=== PATIENT | female | born 1970 | race Caucasian/White ===

== ENCOUNTER 2017-12-02 21:43 | Emergency (ER) | payer MEDICAID, OTHER ==
[2017-12-02] MEDS: morphine 4 MG/ML VIAL IV (22:45)
[2017-12-02] MEDS: ONDANSETRON 4 MG INJ IV (22:45)
[2017-12-02] MEDS: SOD CHLORIDE 0.9% 1,000 ML IV (22:47)
[2017-12-02 22:57] LABS: ADD MAN DIFF? NO
[2017-12-02 22:59] LABS: WHITE BLOOD COUNT 8.5 10^3/ul (4.8-10.8)
[2017-12-02 22:59] LABS: BASOPHIL # 0.1 10^3/ul (0.0-0.1); BASOPHILS % 0.7 % (0.0-2.0); EOSINOPHILS # 0.2 10^3/ul (0.0-0.5); EOSINOPHILS % 2.8 % (0.0-7.0); HEMATOCRIT 40.2 % (37.0-47.0); HEMOGLOBIN 13.4 g/dl (12.0-16.0); LYMPHOCYTES # 3.6 10^3/ul (0.8-2.9); LYMPHOCYTES % 41.6 % (15.0-51.0); MEAN CORPUSCULAR HGB CONC 33.3 g/dl (32.0-37.0); MEAN PLATELET VOLUME 9.5 fl (7.4-10.4); MONOCYTE # 0.5 10^3/ul (0.3-0.9); MONOCYTES % 6.1 % (0.0-11.0); NEUTROPHIL # 4.2 10^3/ul (1.6-7.5); NEUTROPHILS % 48.6 % (39.0-77.0); PLATELET COUNT 203 10^3/UL (140-415); RED BLOOD COUNT 4.62 10^6/ul (4.20-5.40); RED CELL DISTRIBUTION WIDTH 12.8 % (11.5-14.5)
[2017-12-02 23:02] LABS: ADD UMIC YES; UR ASCORBIC ACID NEGATIVE (NEGATIVE); UR BILIRUBIN (Dip) NEGATIVE (NEGATIVE); UR BLOOD (Dip) NEGATIVE (NEGATIVE); UR CLARITY SLIGHTLY CLOUDY (CLEAR); UR COLOR YELLOW (YELLOW); UR GLUCOSE (Dip) NEGATIVE (NEGATIVE); UR KETONES (Dip) NEGATIVE (NEGATIVE); UR LEUKOCYTE ESTERASE (Dip) TRACE Leu/ul (NEGATIVE); UR MUCUS FEW /HPF (NONE SEEN); UR NITRITE (Dip) NEGATIVE (NEGATIVE); UR RBC 1 /HPF (0-5); UR SQUAMOUS EPITHELIAL CELL MODERATE /HPF (FEW); UR TOTAL PROTEIN (Dip) NEGATIVE (NEGATIVE); UR UROBILINOGEN (Dip) 1+ mg/dL (NEGATIVE); UR WBC 1 /HPF (0-5)
[2017-12-02 23:20] LABS: ALANINE AMINOTRANSFERASE 48 IU/L (13-69); ALBUMIN 4.1 g/dl (3.3-4.9); ALKALINE PHOSPHATASE 119 IU/L (42-121); ANION GAP 12 (8-16); ASPARTATE AMINO TRANSFERASE 39 IU/L (15-46); BILIRUBIN,INDIRECT 0.4 mg/dl (0-1.1); BILIRUBIN,TOTAL 0.4 mg/dl (0.2-1.3); BLOOD UREA NITROGEN 17 mg/dl (7-20); CARBON DIOXIDE 31 mmol/L (21-31); CHLORIDE 103 mmol/L (97-110); CREATININE 1.06 mg/dl (0.44-1.00); GLUCOSE 129 mg/dl (70-220); LIPASE 138 U/L (23-300); POTASSIUM 3.9 mmol/L (3.5-5.1); SODIUM 142 mmol/L (135-144); TOTAL PROTEIN 7.5 g/dl (6.1-8.1)
[2017-12-03] MEDS: morphine 2 MG INJ IV (00:14)
== END 2017-12-03 02:12 | disposition home or self-care (01) ==
LOC: FTE 21:43
DX: R10.84 Generalized abdominal pain (principal); R11.2 Nausea with vomiting, unspecified; I10 Essential (primary) hypertension; E11.9 Type 2 diabetes mellitus without complications
CPT/HCPCS: 36415; 74176; 80053; 81001; 81025; 83690; 85025; 96374; 96375; 96376; 99285-25

== ENCOUNTER 2017-12-10 11:00 | Emergency (ER) | payer MEDICAID ==
[2017-12-10] MEDS: KETOROLAC 60 MG INJ IM (11:55)
[2017-12-10] MEDS: HYDROCODONE/APAP (10/325) TAB PO (12:50)
[2017-12-10] MEDS: ONDANSETRON (ODT) 4 MG TAB ODT (12:50)
== END 2017-12-10 13:34 | disposition home or self-care (01) ==
LOC: FTE 11:00
DX: M54.6 Pain in thoracic spine (principal); E11.9 Type 2 diabetes mellitus without complications; I10 Essential (primary) hypertension
CPT/HCPCS: 71045; 93005; 96372; 99284-25

== ENCOUNTER 2018-04-11 21:00 | Emergency (ER) | payer OTHER, MEDICAID ==
[2018-04-12] MEDS: ONDANSETRON 4 MG INJ IV (01:03)
[2018-04-12] MEDS: SOD CHLORIDE 0.9% 500 ML IV (01:04)
[2018-04-12] MEDS: morphine 4 MG/ML VIAL IV (01:04)
[2018-04-12 01:06] LABS: ADD MAN DIFF? NO
[2018-04-12 01:14] LABS: WHITE BLOOD COUNT 7.8 10^3/ul (4.8-10.8)
[2018-04-12 01:14] LABS: BASOPHILS % 0.4 % (0.0-2.0); EOSINOPHILS # 0.1 10^3/ul (0.0-0.5); EOSINOPHILS % 1.7 % (0.0-7.0); HEMATOCRIT 40.6 % (37.0-47.0); HEMOGLOBIN 13.8 g/dl (12.0-16.0); LYMPHOCYTES # 3.1 10^3/ul (0.8-2.9); LYMPHOCYTES % 39.9 % (15.0-51.0); MEAN CORPUSCULAR HEMOGLOBIN 29.3 pg (29.0-33.0); MEAN CORPUSCULAR VOLUME 86.2 fl (82.0-101.0); MEAN PLATELET VOLUME 9.5 fl (7.4-10.4); MONOCYTE # 0.5 10^3/ul (0.3-0.9); MONOCYTES % 6.5 % (0.0-11.0); NEUTROPHILS % 51.2 % (39.0-77.0); PLATELET COUNT 202 10^3/UL (140-415); RED BLOOD COUNT 4.71 10^6/ul (4.20-5.40); RED CELL DISTRIBUTION WIDTH 12.2 % (11.5-14.5)
[2018-04-12 01:16] LABS: ADD UMIC YES; UR ASCORBIC ACID 20 mg/dL (NEGATIVE); UR BILIRUBIN (Dip) NEGATIVE (NEGATIVE); UR BLOOD (Dip) 3+ mg/dL (NEGATIVE); UR CLARITY CLEAR (CLEAR); UR COLOR YELLOW (YELLOW); UR GLUCOSE (Dip) NEGATIVE (NEGATIVE); UR KETONES (Dip) NEGATIVE (NEGATIVE); UR LEUKOCYTE ESTERASE (Dip) NEGATIVE Leu/ul (NEGATIVE); UR MUCUS FEW /HPF (NONE SEEN); UR NITRITE (Dip) NEGATIVE (NEGATIVE); UR RBC 0 /HPF (0-5); UR SPECIFIC GRAVITY (Dip) 1.024 (1.003-1.030); UR SQUAMOUS EPITHELIAL CELL FEW /HPF (FEW); UR TOTAL PROTEIN (Dip) NEGATIVE (NEGATIVE); UR UROBILINOGEN (Dip) NEGATIVE (NEGATIVE); UR WBC 1 /HPF (0-5)
[2018-04-12 01:32] LABS: ALANINE AMINOTRANSFERASE 41 IU/L (13-69); ALBUMIN 4.2 g/dl (3.3-4.9); ALBUMIN/GLOBULIN RATIO 1.35; ALKALINE PHOSPHATASE 88 IU/L (42-121); ANION GAP 9 (5-13); ASPARTATE AMINO TRANSFERASE 39 IU/L (15-46); BILIRUBIN,INDIRECT 0.7 mg/dl (0-1.1); BILIRUBIN,TOTAL 0.7 mg/dl (0.2-1.3); BLOOD UREA NITROGEN 17 mg/dl (7-20); CALCIUM 9.5 mg/dl (8.4-10.2); CARBON DIOXIDE 28 mmol/L (21-31); CHLORIDE 101 mmol/L (97-110); Estimated GFR > 60 mL/min (>60); GLUCOSE 117 mg/dl (70-220); LIPASE 102 U/L (23-300); SODIUM 138 mmol/L (135-144); TOTAL PROTEIN 7.3 g/dl (6.1-8.1)
== END 2018-04-12 03:00 | disposition home or self-care (01) ==
LOC: E/R 21:00
DX: R10.13 Epigastric pain (principal); I10 Essential (primary) hypertension; E11.9 Type 2 diabetes mellitus without complications
CPT/HCPCS: 36415; 74176; 80053; 81001; 81025; 83690; 85025; 96374; 96375; 99285-25

== ENCOUNTER 2018-04-21 12:45 | Emergency (ER) | payer OTHER ==
[2018-04-21 16:57] LABS: ADD MAN DIFF? NO
[2018-04-21] MEDS: IOHEXOL 100 ML (17:00)
[2018-04-21] MEDS: SOD CHLORIDE 0.9% 100 ML (17:00)
[2018-04-21] MEDS: IOHEXOL 350MG/ML 50 ML BTL (17:00)
[2018-04-21 17:10] LABS: WHITE BLOOD COUNT 9.1 10^3/ul (4.8-10.8)
[2018-04-21 17:10] LABS: BASOPHILS % 0.4 % (0.0-2.0); EOSINOPHILS # 0.1 10^3/ul (0.0-0.5); EOSINOPHILS % 1.4 % (0.0-7.0); HEMOGLOBIN 14.2 g/dl (12.0-16.0); LYMPHOCYTES # 3.2 10^3/ul (0.8-2.9); LYMPHOCYTES % 35.5 % (15.0-51.0); MEAN CORPUSCULAR HEMOGLOBIN 28.9 pg (29.0-33.0); MEAN CORPUSCULAR HGB CONC 33.8 g/dl (32.0-37.0); MEAN CORPUSCULAR VOLUME 85.4 fl (82.0-101.0); MEAN PLATELET VOLUME 9.2 fl (7.4-10.4); MONOCYTE # 0.6 10^3/ul (0.3-0.9); MONOCYTES % 6.1 % (0.0-11.0); NEUTROPHIL # 5.1 10^3/ul (1.6-7.5); NEUTROPHILS % 56.3 % (39.0-77.0); PLATELET COUNT 225 10^3/UL (140-415); RED BLOOD COUNT 4.92 10^6/ul (4.20-5.40); RED CELL DISTRIBUTION WIDTH 12.2 % (11.5-14.5)
[2018-04-21 17:14] LABS: ADD UMIC NO; UR ASCORBIC ACID NEGATIVE (NEGATIVE); UR BILIRUBIN (Dip) NEGATIVE (NEGATIVE); UR BLOOD (Dip) NEGATIVE (NEGATIVE); UR CLARITY SLIGHTLY CLOUDY (CLEAR); UR COLOR YELLOW (YELLOW); UR GLUCOSE (Dip) NEGATIVE (NEGATIVE); UR KETONES (Dip) NEGATIVE (NEGATIVE); UR LEUKOCYTE ESTERASE (Dip) NEGATIVE Leu/ul (NEGATIVE); UR NITRITE (Dip) NEGATIVE (NEGATIVE); UR RBC 0 /HPF (0-5); UR SPECIFIC GRAVITY (Dip) 1.016 (1.003-1.030); UR SQUAMOUS EPITHELIAL CELL FEW /HPF (FEW); UR TOTAL PROTEIN (Dip) NEGATIVE (NEGATIVE); UR UROBILINOGEN (Dip) NEGATIVE (NEGATIVE); UR WBC 3 /HPF (0-5)
[2018-04-21 17:29] LABS: INR 1.03; PROTIME 13.6 Sec (11.9-14.9); PT RATIO 1.1
[2018-04-21 17:30] LABS: AMPHETAMINE/METHAMPHETAMINE Negative (NEGATIVE); BARBITURATES Negative (NEGATIVE); BENZODIAZEPINES Negative (NEGATIVE); CANNABINOIDS Negative (NEGATIVE); COCAINE Negative (NEGATIVE); PARTIAL THROMBOPLASTIN TIME 31.4 Sec (23.0-35.0)
[2018-04-21 17:31] LABS: ALANINE AMINOTRANSFERASE 50 IU/L (13-69); ALBUMIN/GLOBULIN RATIO 1.17; ALKALINE PHOSPHATASE 85 IU/L (42-121); ANION GAP 9 (5-13); ASPARTATE AMINO TRANSFERASE 44 IU/L (15-46); BILIRUBIN,INDIRECT 0.9 mg/dl (0-1.1); BILIRUBIN,TOTAL 0.9 mg/dl (0.2-1.3); BLOOD UREA NITROGEN 11 mg/dl (7-20); CALCIUM 9.6 mg/dl (8.4-10.2); CARBON DIOXIDE 28 mmol/L (21-31); CHLORIDE 101 mmol/L (97-110); CREATININE 0.75 mg/dl (0.44-1.00); Estimated GFR > 60 mL/min (>60); GLUCOSE 86 mg/dl (70-220); POTASSIUM 4.3 mmol/L (3.5-5.1); SODIUM 138 mmol/L (135-144); TOTAL PROTEIN 7.4 g/dl (6.1-8.1)
[2018-04-21 17:43] LABS: TROPONIN-I < 0.012 ng/ml (0.000-0.120)
[2018-04-21 18:18] LABS: OPIATES Negative (NEGATIVE)
== END 2018-04-21 20:38 | disposition home or self-care (01) ==
LOC: E/R 12:45
DX: R07.9 Chest pain, unspecified (principal); G44.89 Other headache syndrome; R40.2252 Coma scale, best verbal response, oriented, at arrival to emergency department; R40.2362 Coma scale, best motor response, obeys commands, at arrival to emergency department; R40.2142 Coma scale, eyes open, spontaneous, at arrival to emergency department; I10 Essential (primary) hypertension; E11.9 Type 2 diabetes mellitus without complications
CPT/HCPCS: 36415; 70450; 70496; 70498; 71045; 80053; 80307; 81001; 81003; 81025; 84484; 85025; 85610; 85730; 99285-25

== ENCOUNTER 2018-06-22 22:16 | Emergency (ER) | payer OTHER ==
[2018-06-22 23:36] LABS: ADD UMIC YES; UR ASCORBIC ACID NEGATIVE (NEGATIVE); UR BACTERIA FEW /HPF (NONE SEEN); UR BILIRUBIN (Dip) NEGATIVE (NEGATIVE); UR BLOOD (Dip) NEGATIVE (NEGATIVE); UR CLARITY SLIGHTLY CLOUDY (CLEAR); UR COLOR YELLOW (YELLOW); UR GLUCOSE (Dip) NEGATIVE (NEGATIVE); UR KETONES (Dip) NEGATIVE (NEGATIVE); UR LEUKOCYTE ESTERASE (Dip) TRACE Leu/ul (NEGATIVE); UR NITRITE (Dip) NEGATIVE (NEGATIVE); UR RBC 2 /HPF (0-5); UR SQUAMOUS EPITHELIAL CELL FEW /HPF (FEW); UR TOTAL PROTEIN (Dip) NEGATIVE (NEGATIVE); UR UROBILINOGEN (Dip) NEGATIVE (NEGATIVE); UR WBC 4 /HPF (0-5)
[2018-06-22 23:43] LABS: ADD MAN DIFF? NO
[2018-06-22 23:44] LABS: WHITE BLOOD COUNT 11.2 10^3/ul (4.8-10.8)
[2018-06-22 23:45] LABS: BASOPHIL # 0.1 10^3/ul (0.0-0.1); BASOPHILS % 0.4 % (0.0-2.0); EOSINOPHILS # 0.2 10^3/ul (0.0-0.5); HEMATOCRIT 39.5 % (37.0-47.0); HEMOGLOBIN 13.5 g/dl (12.0-16.0); LYMPHOCYTES # 3.8 10^3/ul (0.8-2.9); LYMPHOCYTES % 33.9 % (15.0-51.0); MEAN CORPUSCULAR HEMOGLOBIN 29.2 pg (29.0-33.0); MEAN CORPUSCULAR HGB CONC 34.2 g/dl (32.0-37.0); MEAN CORPUSCULAR VOLUME 85.5 fl (82.0-101.0); MONOCYTE # 0.7 10^3/ul (0.3-0.9); MONOCYTES % 6.4 % (0.0-11.0); NEUTROPHIL # 6.4 10^3/ul (1.6-7.5); PLATELET COUNT 208 10^3/UL (140-415); RED BLOOD COUNT 4.62 10^6/ul (4.20-5.40); RED CELL DISTRIBUTION WIDTH 12.2 % (11.5-14.5)
[2018-06-23 00:03] LABS: ANION GAP 13 (5-13); BLOOD UREA NITROGEN 15 mg/dl (7-20); CALCIUM 9.6 mg/dl (8.4-10.2); CARBON DIOXIDE 27 mmol/L (21-31); CHLORIDE 99 mmol/L (97-110); CREATININE 0.87 mg/dl (0.44-1.00); Estimated GFR > 60 mL/min (>60); GLUCOSE 101 mg/dl (70-220); POTASSIUM 4.2 mmol/L (3.5-5.1); SODIUM 139 mmol/L (135-144)
[2018-06-23 00:14] LABS: TROPONIN-I < 0.012 ng/ml (0.000-0.120)
[2018-06-23] MEDS: KETOROLAC 30 MG INJ IV (00:44)
== END 2018-06-23 00:50 | disposition home or self-care (01) ==
LOC: E/R 06-23 00:50
DX: M94.0 Chondrocostal junction syndrome [Tietze] (principal); E11.9 Type 2 diabetes mellitus without complications; I10 Essential (primary) hypertension
CPT/HCPCS: 71045; 80048; 81001; 81025; 84484; 84703; 85025; 93005; 96374; 99285-25

== ENCOUNTER 2018-07-22 22:44 | Emergency (ER) | payer OTHER ==
[2018-07-23] MEDS: KETOROLAC 60 MG INJ IM (04:01)
[2018-07-23] MEDS: ACETAMINOPHEN 500 MG TAB PO (04:01)
[2018-07-23] MEDS: CYCLOBENZAPRINE 10 MG TAB PO (04:01)
== END 2018-07-23 07:18 | disposition home or self-care (01) ==
LOC: FTE 22:44
DX: M25.511 Pain in right shoulder (principal); I10 Essential (primary) hypertension; E11.9 Type 2 diabetes mellitus without complications
CPT/HCPCS: 73030; 73030-RT; 73060-RT; 81025; 96372; 99284-25

== ENCOUNTER 2018-10-09 12:07 | Day surgery (SDC) | payer OTHER ==
[2018-10-09 14:12] LABS: ADD MAN DIFF? NO
[2018-10-09 14:13] LABS: BASOPHIL # 0.1 10^3/ul (0.0-0.1); BASOPHILS % 0.6 % (0.0-2.0); EOSINOPHILS # 0.1 10^3/ul (0.0-0.5); EOSINOPHILS % 1.7 % (0.0-7.0); HEMATOCRIT 39.3 % (37.0-47.0); HEMOGLOBIN 13.3 g/dl (12.0-16.0); LYMPHOCYTES # 2.8 10^3/ul (0.8-2.9); LYMPHOCYTES % 33.8 % (15.0-51.0); MEAN CORPUSCULAR HEMOGLOBIN 29.1 pg (29.0-33.0); MEAN CORPUSCULAR HGB CONC 33.8 g/dl (32.0-37.0); MEAN PLATELET VOLUME 9.3 fl (7.4-10.4); MONOCYTE # 0.6 10^3/ul (0.3-0.9); MONOCYTES % 7.1 % (0.0-11.0); NEUTROPHIL # 4.7 10^3/ul (1.6-7.5); NEUTROPHILS % 56.4 % (39.0-77.0); PLATELET COUNT 189 10^3/UL (140-415); RED BLOOD COUNT 4.57 10^6/ul (4.20-5.40); RED CELL DISTRIBUTION WIDTH 12.4 % (11.5-14.5)
[2018-10-09 14:13] LABS: WHITE BLOOD COUNT 8.3 10^3/ul (4.8-10.8)
[2018-10-09] MEDS ORDERED: DEXAMETHASONE 4 MG/ML 5 ML INJ ×2 (14:41→15:14)
[2018-10-09] MEDS ORDERED: LIDOCAINE 100 MG SYRINGE (14:41)
[2018-10-09] MEDS ORDERED: ONDANSETRON 4 MG INJ ×2 (14:41→15:14)
[2018-10-09] MEDS ORDERED: SUCCINYLCHOLINE CHLORIDE 100 MG/5 ML SYG IV (14:41)
[2018-10-09] MEDS ORDERED: MIDAZOLAM 1 MG/ML 2 ML INJ ×2 (14:41→15:14)
[2018-10-09] MEDS ORDERED: FENTAnyl 50 MCG/ML VIAL ×2 (14:41→15:14)
[2018-10-09] MEDS ORDERED: METOCLOPRAMIDE 10 MG INJ (14:41)
[2018-10-09] MEDS ORDERED: ROCURONIUM 50 MG INJ ×2 (14:41→15:14)
[2018-10-09] MEDS ORDERED: PROPOFOL 100 ML (14:41)
[2018-10-09] MEDS ORDERED: LABETALOL HCL 20MG INJ IV (15:00)
[2018-10-09] MEDS ORDERED: hydrALAzine 20 MG INJ IV (15:00)
[2018-10-09] MEDS ORDERED: FENTAnyl 50 MCG/ML VIAL IV (15:00)
[2018-10-09] MEDS ORDERED: OXYCODONE/ACETAMINOPHEN (5/325) TAB PO (15:00)
[2018-10-09] MEDS ORDERED: METOCLOPRAMIDE 10 MG INJ IV (15:00)
[2018-10-09] MEDS ORDERED: MEPERIDINE 25 MG INJ IV (15:00)
[2018-10-09] MEDS ORDERED: GLYCOPYRROLATE 0.4 MG INJ (15:14)
[2018-10-09] MEDS ORDERED: PROPOFOL 20 ML (15:14)
[2018-10-09] MEDS ORDERED: NEOSTIGMINE 3 MG/3 ML SYRINGE (15:14)
[2018-10-09] MEDS ORDERED: CEFAZOLIN 1 GM INJ (15:14)
[2018-10-09] MEDS ORDERED: SUGAMMADEX SODIUM 200 MG/2 ML VIAL IV (15:43)
[2018-10-09] MEDS ORDERED: KETOROLAC 30 MG INJ (15:46)
[2018-10-09] MEDS: HYDROmorphONE 1 MG/5 ML IV SYRINGE IV ×3 (15:56→16:07)
[2018-10-09] MEDS: ONDANSETRON 4 MG INJ IV (15:58)
[2018-10-09] MEDS ORDERED: morphine 2 MG INJ IV (16:00)
[2018-10-09] MEDS: FENTAnyl 50 MCG/ML VIAL IV (16:10)
[2018-10-09] MEDS: OXYCODONE/ACETAMINOPHEN (5/325) TAB PO (16:25)
== END 2018-10-09 17:09 | disposition home or self-care (01) ==
LOC: SDS 12:07
DX: J35.01 Chronic tonsillitis (principal); E11.9 Type 2 diabetes mellitus without complications; I10 Essential (primary) hypertension; G47.33 Obstructive sleep apnea (adult) (pediatric)
CPT/HCPCS: 42826; 82962; 85025; 88304

== ENCOUNTER 2018-10-10 17:46 | Emergency (ER) | payer OTHER | END 2018-10-10 20:02 | disposition home or self-care (01) | LOC: E/R 17:46 | DX: J02.9 Acute pharyngitis, unspecified (principal); I10 Essential (primary) hypertension; K59.00 Constipation, unspecified; Z79.84 Long term (current) use of oral hypoglycemic drugs | CPT/HCPCS: 81025; 99283 ==